=== PATIENT | female | born 1945 | race African-American/Black ===

== ENCOUNTER 2016-08-19 13:29 | Emergency (ER) | payer OTHER ==
[2016-08-19 13:36] VITALS: BP 140/68; PULSE 69; TEMP 98; BMI 30.5
--- NOTE | 2016-08-19 13:45 | PDOC ---
History of Present Illness - General Chief Complaint: Pain Stated Complaint: HIP PAIN Time Seen by Provider: 08/19/16 13:44 History Source: Patient Exam Limitations: No Limitations - History of Present Illness Initial Comments: CHIEF COMPLAINT: 71 y/o afebrile female with PMH HTN, HLD, DM, CAD (Previous CABG no longer on Plavix; only taking aspirin), sciatica c/o left sided low back pain. HISTORY OF PRESENT ILLNESS: The patient states she woke up at 4am and experienced low back pain that radiates down to her left leg. She states this has happened before and she thinks it s flare up of her sciatica. She took Aleve early in the morning. She states she does have a doctor that will give her a cortisone shot but she can't get in to see him today. She denies fall, trauma to back, saddle anesthesia, bowel/bladder incontinence, numbness/ tingling lower extremities. Vital signs on arrival are within normal limits. REVIEW OF SYSTEMS: GENERAL/CONSTITUTIONAL: No fever/chills. No weakness. No weight change. GENITOURINARY: No dysuria, frequency, or change in urination. MUSCULOSKELETAL: +left low back pain with left leg pain. SKIN: No rash or easy bruising. NEUROLOGIC: No headache, vertigo, loss of consciousness, or loss of sensation. PHYSICAL EXAM: VITAL_SIGNS: within normal limits GENERAL_APPEARANCE: alert, cooperative, no obvious discomfort. She is ambulatory without limp. MENTAL_STATUS: speech clear, oriented X 3, responds appropriately to questions. ABD: No abd pain or pelvic pain with palpation BACK: No midline lumbar spine TTP. No step offs. Pain reproduce with deep palpation of left gluteal muscles. NEURO: motor intact and sensory intact in injured extremity. No saddle anesthesia. Equal straight leg raise b/l. EXTREMITIES: Full ROM of b/l LEs. SKIN: warm, dry, good color. Past History - Past Medical History Allergies/Adverse Reactions: Allergies Allergy/AdvReac Type Severity Reaction Status Date / Time No Known Allergies Allergy Verified 08/19/16 13:32 Home Medications: Ambulatory Orders Aspirin [ASA] 81 mg PO DAILY 12/18/11 Clopidogrel Bisulfate [Plavix] 75 mg PO DAILY 12/18/11 Metoprolol Tartrate [Lopressor] 25 mg PO DAILY 12/18/11 Amlodipine/Valsartan [Amlodipine-Valsartan 5-320 mg] 1 each PO 08/19/16 Atorvastatin Ca [Lipitor] 20 mg PO HS 08/19/16 Clopidogrel Bisulfate [Clopidogrel] 75 mg PO 08/19/16 Ergocalciferol (Vitamin D2) [Vitamin D2] 2,000 unit PO 08/19/16 Metformin HCl 500 mg PO 08/19/16 Omeprazole 20 mg PO 08/19/16 Cardiac Disorders: Yes Diabetes: Yes HTN: Yes Other medical history: nerve damage (back) - Surgical History Appendectomy: Yes Cardiac Surgery: Yes (quad bypass) - Immunization History Td Vaccination: Yes TDAP Vaccination: Yes Immunization Up to Date: Yes - Psycho/Social/Smoking Cessation Hx Anxiety: No Suicidal Ideation: No Smoking Status: No Smoking History: Never smoked Years of Tobacco Use: 0 Have you smoked in the past 12 months: No Number of Cigarettes Smoked Daily: 0 Cigars Per Day: 0 Information on smoking cessation initiated: No Hx Alcohol Use: No Drug/Substance Use Hx: No Substance Use Type: None Hx Substance Use Treatment: No *Physical Exam - Vital Signs Last Vital Signs Temp Pulse Resp BP Pulse Ox 98 F 69 18 140/68 98 08/19/16 13:32 08/19/16 13:32 08/19/16 13:32 08/19/16 13:32 08/19/16 13:32 Medical Decision Making - Medical Decision Making A/P: 71 y/o afebrile female with sciatica flare up. Plan is as follows: 1. IM toradol The patient was encouraged to do stretches to help relieve the pain. Suggested she call her doctor for another cortisone shot. Instructed her to return to the ER with any worsening or concerning symptoms. The patient verbalizes understanding of all instructions, has no further questions and is awaiting discharge. *DC/Admit/Observation/Transfer Diagnosis at time of Disposition: Low back pain with sciatica Qualifiers: Chronicity: acute Back pain laterality: left Sciatica laterality: sciatica of left side Qualified Code(s): M54.42 - Lumbago with sciatica, left side - Discharge Dispostion Disposition: HOME Condition at time of disposition: Good - Referrals Referrals: Liliya Patel MD [Primary Care Provider] - - Patient Instructions Printed Discharge Instructions: DI for Back Pain With Sciatica Additional Instructions: Discharge Instructions: -Take Aleve for back pain -Use heating pad to affected area -Stretch your low back and legs multiple times per day -Follow up with your doctor for your next Cortisone injection -Return to the ER with any worsening or concerning symptoms
[2016-08-19] MEDS ORDERED: KETOROLAC TROMETHAMINE 60 MG/2 ML VIAL ONE (13:54)
[2016-08-19] MEDS ORDERED: KETOROLAC TROMETHAMINE 60 MG/2 ML VIAL IM ONE (13:55)
== END 2016-08-19 14:48 | disposition home or self-care (01) ==
LOC: JERFT 13:29
PROC: 3E0233Z Introduction of Anti-inflammatory into Muscle, Percutaneous Approach (ICD-10-PCS; principal; 2016-08-19)
DX: M54.42 Lumbago with sciatica, left side (principal); I10 Essential (primary) hypertension; E78.00 Pure hypercholesterolemia, unspecified; E11.9 Type 2 diabetes mellitus without complications; Z79.84 Long term (current) use of oral hypoglycemic drugs; Z95.1 Presence of aortocoronary bypass graft
CPT/HCPCS: 99281-25

== ENCOUNTER 2021-02-11 04:47 | Day surgery (SDC) | payer OTHER ==
[2021-02-10 16:54] VITALS: BMI 30.2
[~2021-02-11 04:47] MED LIST: ACETAMINOPHEN 325 MG TABLET (FP) PO PRN; CYCLOPENTOLATE HCL 1% OPHTH SOLN 2 ML BOTTLE OP SCH; KETOROLAC TROMETHAMINE 0.5% EYE DROP 1 DROP DROPS OP SCH; OFLOXACIN 0.3% OPHTHALMIC SOLUTION 5 ML BOTTLE OP SCH; PHENYLEPHRINE 2.5% OPHTH SOLN 15 ML BOTTLE OP SCH; TROPICAMIDE 1% OPHTH SOLN 15 ML BOTTLE OP SCH
[2021-02-11] MEDS ORDERED: TETRACAINE 0.5% OPHTH SOLN 2 ML BOTTLE ONE (07:28)
[2021-02-11] MEDS ORDERED: BUPIVACAINE HCL/PF 0.75% 10 ML VIAL ONE (07:28)
[2021-02-11] MEDS ORDERED: LIDOCAINE HCL/PF 2% SDV 5ML VIAL ONE (07:28)
[2021-02-11] MEDS ORDERED: POVIDONE-IODINE 5% OPHTHALMIC PREP 30 ML SOLUTION ONE (07:28)
[2021-02-11] MEDS ORDERED: LIDOCAINE HCL/PF 1% SDV 5ML VIAL ONE ×2 (07:28→11:20)
[2021-02-11] MEDS ORDERED: TRYPAN BLUE 0.5 ML DISP.SYRIN ONE (07:28)
[2021-02-11] MEDS ORDERED: TROPICAMIDE 1% OPHTH SOLN 15 ML BOTTLE ONE (09:09)
[2021-02-11] MEDS ORDERED: PHENYLEPHRINE 2.5% OPTHALMIC DROP BOTTLE ONE (09:09)
[2021-02-11] MEDS ORDERED: KETOROLAC TROMETHAMINE 0.5% EYE DROP 1 DROP DROPS ONE (09:09)
[2021-02-11] MEDS ORDERED: OFLOXACIN 0.3% OPHTHALMIC SOLUTION 5 ML BOTTLE ONE (09:09)
[2021-02-11] MEDS ORDERED: CYCLOPENTOLATE HCL 1% OPHTH SOLN 2 ML BOTTLE ONE (09:09)
[2021-02-11] MEDS ORDERED: LIDOCAINE HCL/PF 2% SDV 5ML VIAL INF ONE (11:27)
[2021-02-11] MEDS ORDERED: BUPIVACAINE HCL/PF 0.75% 10 ML VIAL NR ONE (11:27)
[2021-02-11] MEDS ORDERED: POVIDONE-IODINE 5% OPHTHALMIC PREP 30 ML SOLUTION OD ONE (11:29)
[2021-02-11] MEDS ORDERED: BSS (NA/CA/MG/K) BALANCED SALT SOLUTION OPHTH SOLN 15 ML BOTTLE OD ONE (11:33)
[2021-02-11] MEDS ORDERED: CHONDROITIN SU A/HYALUR SOD 1 KIT IO ONE (11:35)
[2021-02-11] MEDS ORDERED: LIDOCAINE HCL 1% PRESERVATIVE FREE - 30ML VIAL IO ONE (11:35)
[2021-02-11] MEDS ORDERED: TRYPAN BLUE 0.5 ML DISP.SYRIN IO ONE (11:36)
[2021-02-11] MEDS ORDERED: EPINEPHrine/PF 1 MG/1 ML (1:1,000) AMPULE SQ ONE (11:42)
[2021-02-11 12:50] VITALS: TEMP 97.6
[2021-02-11 13:19] VITALS: BP 140/72; PULSE 72
== END 2021-02-11 13:10 | disposition home or self-care (01) ==
LOC: JASU-SURG 04:47
PROVIDERS: ATTEND Ophthalmology
PROC: 08RJ3JZ Replacement of Right Lens with Synthetic Substitute, Percutaneous Approach (ICD-10-PCS; principal; 2021-02-11 11:00)
DX: H26.9 Unspecified cataract (principal); I10 Essential (primary) hypertension; E11.9 Type 2 diabetes mellitus without complications
CPT/HCPCS: 82962

== ENCOUNTER 2021-03-17 13:30 | Observation (INO) | payer OTHER ==
[2021-03-17 14:51] LABS: BASO % 0.3 % (0-2.0); EOS % 3.4 % (0-4.5); HEMATOCRIT 34.8 % (32.4-45.2); HEMOGLOBIN 11.8 GM/dL (10.7-15.3); LYMPH % 29.8 % (8-40); MCH 30.4 pg (25.7-33.7); MCHC 33.9 g/dl (32.0-36.0); MEAN CELL VOLUME 89.7 fl (80-96); MEAN PLT VOLUME 7.9 fl (7.5-11.1); MONO % 7.6 % (3.8-10.2); NEUT % 58.9 % (42.8-82.8); PLATELET COUNT 297 10^3/uL (134-434); RBC 3.88 M/mm3 (3.60-5.2); RDW 14.4 % (11.6-15.6)
[2021-03-17 16:24] LABS: ALBUMIN 4.2 g/dl (3.4-5.0); ALK PHOS 49 U/L (45-117); ANION GAP 8 MMOL/L (8-16); BILIRUBIN,TOTAL 0.3 mg/dL (0.2-1); BLOOD UREA NITROGEN 11.7 mg/dL (7-18); CALCIUM 9.9 mg/dL (8.5-10.1); CHLORIDE 105 mmol/L (98-107); CO2 25 mmol/L (21-32); CREATININE 0.8 mg/dL (0.55-1.3); GLUCOSE,RANDOM 105 mg/dL (74-106); SGOT/AST 20 U/L (15-37); SGPT/ALT 25 U/L (13-61); SODIUM 137 mmol/L (136-145); TOT PROT 8.2 g/dl (6.4-8.2)
[2021-03-17] MEDS: KETOROLAC TROMETHAMINE 0.5% EYE DROP 1 DROP DROPS OD SCH ×2 (18:23→21:48)
[2021-03-17] MEDS ORDERED: ACETAMINOPHEN 325 MG TABLET (FP) ONE (20:14)
[2021-03-17] MEDS: ROSUVASTATIN CA 10 MG TABLET (FP) PO SCH (21:49)
[2021-03-17] MEDS: MONTELUKAST NA 10 MG TABLET PO SCH (21:49)
[2021-03-17] MEDS: EZETIMIBE 10 MG TABLET (FP) PO SCH (21:49)
[2021-03-17] MEDS: BACLOFEN 10 MG TABLET (FP) PO SCH (21:49)
[2021-03-17] MEDS: PREGABALIN 75 MG CAPSULE PO SCH (21:50)
[2021-03-17] MEDS: HEPARIN NA (PORCINE) 5,000 UNITS/ML 1ML VIAL SQ SCH (21:50)
[2021-03-17] MEDS: ZOLPIDEM TARTRATE 5 MG TABLET PO PRN (22:14)
[2021-03-18] MEDS: ACETAMINOPHEN 500 MG TABLET (FP) PO PRN ×2 (01:14→18:17)
[2021-03-18 01:28] LABS: CHOLESTEROL 152 mg/dL (50-200); HDL CHOLESTEROL 41 mg/dL (40-60); LDL CHOLESTEROL (ONLY SJRH) 90 mg/dL (5-100); N-TERMINAL BNP 87.3 pg/ml (5-450); TRIGLYCERIDES 132 mg/dL (0-150)
[2021-03-18 07:35] LABS: BASO % 0.7 % (0-2.0); EOS % 2.7 % (0-4.5); HEMATOCRIT 30.4 % (32.4-45.2); HEMOGLOBIN 10.3 GM/dL (10.7-15.3); LYMPH % 35.8 % (8-40); MCH 30.1 pg (25.7-33.7); MCHC 33.7 g/dl (32.0-36.0); MEAN CELL VOLUME 89.2 fl (80-96); MEAN PLT VOLUME 7.9 fl (7.5-11.1); MONO % 8.6 % (3.8-10.2); NEUT % 52.2 % (42.8-82.8); PLATELET COUNT 267 10^3/uL (134-434); RBC 3.41 M/mm3 (3.60-5.2); RDW 14.5 % (11.6-15.6); WHITE BLOOD COUNT 6.8 K/mm3 (4.0-10.0)
[2021-03-18 09:55] LABS: ALBUMIN 3.5 g/dl (3.4-5.0); ALK PHOS 42 U/L (45-117); ANION GAP 3 MMOL/L (8-16); BILIRUBIN,TOTAL 0.3 mg/dL (0.2-1); BLOOD UREA NITROGEN 18.1 mg/dL (7-18); CALCIUM 8.7 mg/dL (8.5-10.1); CHLORIDE 111 mmol/L (98-107); CHOLESTEROL 125 mg/dL (50-200); CO2 28 mmol/L (21-32); GLUCOSE,RANDOM 97 mg/dL (74-106); HDL CHOLESTEROL 31 mg/dL (40-60); SGOT/AST 13 U/L (15-37); SGPT/ALT 22 U/L (13-61); SODIUM 142 mmol/L (136-145); TOT PROT 6.9 g/dl (6.4-8.2); TRIGLYCERIDES 110 mg/dL (0-150)
[2021-03-18] MEDS ORDERED: REGADENOSON 0.4 MG/5 ML PRE-FILLED SYRINGE IVPUSH ONE ×2 (10:20→10:30)
[2021-03-18] MEDS: KETOROLAC TROMETHAMINE 0.5% EYE DROP 1 DROP DROPS OD SCH ×4 (12:09→21:42)
[2021-03-18] MEDS: VALSARTAN 160 MG TABLET PO SCH (12:11)
[2021-03-18] MEDS: HEPARIN NA (PORCINE) 5,000 UNITS/ML 1ML VIAL SQ SCH ×2 (12:11→21:43)
[2021-03-18] MEDS: PANTOPRAZOLE 40 MG TABLET PO SCH (12:11)
[2021-03-18] MEDS: ASPIRIN 81 MG CHEWABLE TABLETS PO SCH (12:11)
[2021-03-18] MEDS: NEBIVOLOL 10 MG TABLET (FP) PO SCH (12:11)
[2021-03-18] MEDS: amLODIPine BESYLATE 5 MG TABLET (FP) PO SCH (12:12)
[2021-03-18] MEDS ORDERED: PT OWN MED DRAWER 7, Y5N ONE (12:13)
[2021-03-18] MEDS: PREGABALIN 75 MG CAPSULE PO SCH ×2 (12:14→21:42)
[2021-03-18] MEDS: FLUTICASONE PROP 0.05% 16 GM NASAL SPRAY NS SCH (12:17)
[2021-03-18 15:05] LABS: IRON SERUM 42 ug/dL (50-175); LDL CHOLESTEROL (ONLY SJRH) 70 mg/dL (5-100); TOTAL IRON BINDING CAPACITY 243 ug/dL (250-450)
[2021-03-18 17:14] LABS: HEMATOCRIT 32.2 % (32.4-45.2); HEMOGLOBIN 10.8 GM/dL (10.7-15.3); MCH 30.1 pg (25.7-33.7); MCHC 33.5 g/dl (32.0-36.0); MEAN CELL VOLUME 89.8 fl (80-96); MEAN PLT VOLUME 7.9 fl (7.5-11.1); PLATELET COUNT 291 10^3/uL (134-434); RBC 3.58 M/mm3 (3.60-5.2); RDW 14.4 % (11.6-15.6)
[2021-03-18] MEDS: BACLOFEN 10 MG TABLET (FP) PO SCH (21:42)
[2021-03-18] MEDS: MONTELUKAST NA 10 MG TABLET PO SCH (21:42)
[2021-03-18] MEDS: EZETIMIBE 10 MG TABLET (FP) PO SCH (21:42)
[2021-03-18] MEDS: ROSUVASTATIN CA 10 MG TABLET (FP) PO SCH (21:42)
[2021-03-18] MEDS: ZOLPIDEM TARTRATE 5 MG TABLET PO PRN (22:32)
[2021-03-19 09:09] VITALS: BP 106/58; PULSE 58; TEMP 98
[2021-03-19] MEDS: NEBIVOLOL 10 MG TABLET (FP) PO SCH (09:39)
[2021-03-19] MEDS: VALSARTAN 160 MG TABLET PO SCH (09:39)
[2021-03-19] MEDS: PREGABALIN 75 MG CAPSULE PO SCH (09:40)
[2021-03-19] MEDS: PANTOPRAZOLE 40 MG TABLET PO SCH (09:40)
[2021-03-19] MEDS: HEPARIN NA (PORCINE) 5,000 UNITS/ML 1ML VIAL SQ SCH (09:40)
[2021-03-19] MEDS: ASPIRIN 81 MG CHEWABLE TABLETS PO SCH (09:40)
[2021-03-19] MEDS: amLODIPine BESYLATE 5 MG TABLET (FP) PO SCH (09:40)
[2021-03-19] MEDS: FLUTICASONE PROP 0.05% 16 GM NASAL SPRAY NS SCH (09:43)
[2021-03-19] MEDS: KETOROLAC TROMETHAMINE 0.5% EYE DROP 1 DROP DROPS OD SCH (09:43)
== END 2021-03-19 11:39 | disposition home or self-care (01) ==
LOC: JER 13:30 → UNDOADMOB 16:47 → JERBED 16:47 → INTOOBSV 17:42 → OBSVTOIN 17:42 → JERBED 20:53 → J4W 20:53 → JERBED 03-18 13:15
PROVIDERS: ADMIT Family Medicine; ATTEND Family Medicine
PROC: 3E033GC Introduction of Other Therapeutic Substance into Peripheral Vein, Percutaneous Approach (ICD-10-PCS; principal; 2021-03-18)
DX: I11.0 Hypertensive heart disease with heart failure (principal); J45.909 Unspecified asthma, uncomplicated; K21.9 Gastro-esophageal reflux disease without esophagitis; D64.9 Anemia, unspecified; R01.1 Cardiac murmur, unspecified; Z68.30 Body mass index [BMI] 30.0-30.9, adult; Z95.1 Presence of aortocoronary bypass graft; M13.869 Other specified arthritis, unspecified knee; M13.819 Other specified arthritis, unspecified shoulder; M54.9 Dorsalgia, unspecified; E66.9 Obesity, unspecified; I25.2 Old myocardial infarction
CPT/HCPCS: 36415; 71045-TC-FY; 78452-TC; 80053; 80061; 82550; 82553; 82728; 82962; 83036; 83540; 83550; 83880; 84443; 84484; 85025; 85027; 93005; 93010; 93017; 93306-TC; 96374; 99285-25; A9502; C9803; G0378; J0475; J1644; J2785; U0003; U0005

== ENCOUNTER 2021-12-10 02:22 | Inpatient (IN) | payer OTHER ==
[2021-12-10] MEDS ORDERED: ACETAMINOPHEN 1000 MG/100 ML BAG IVPB ONE (03:21)
[2021-12-10] MEDS ORDERED: ACETAMINOPHEN INJECTION 100 ML IVPB ONE (03:21)
[2021-12-10] MEDS ORDERED: LIDOCAINE 5% TOPICAL PATCH TP ONE ×2 (03:22→23:54)
[2021-12-10] MEDS ORDERED: LIDOCAINE 5% TOPICAL PATCH ONE (03:48)
[2021-12-10] MEDS ORDERED: ALBUTEROL SO4 0.083% IH SOL 2.5 MG/3 ML VIAL.NEB. NEB ONE ×2 (04:12→04:22)
[2021-12-10 04:19] LABS: BASO % 0.7 % (0-2.0); EOS % 3.8 % (0-4.5); HEMATOCRIT 36.1 % (32.4-45.2); HEMOGLOBIN 12.6 GM/dL (10.7-15.3); LYMPH % 27.1 % (8-40); MCH 30.4 pg (25.7-33.7); MCHC 34.9 g/dl (32.0-36.0); MEAN CELL VOLUME 86.9 fl (80-96); MEAN PLT VOLUME 8.6 fl (7.5-11.1); MONO % 6.6 % (3.8-10.2); NEUT % 61.8 % (42.8-82.8); PLATELET COUNT 291 10^3/uL (134-434); RBC 4.15 M/mm3 (3.60-5.2); WHITE BLOOD COUNT 9.3 K/mm3 (4.0-10.0)
[2021-12-10 04:36] LABS: CALCIUM 9.2 mg/dL (8.5-10.1)
[2021-12-10 04:37] LABS: ALBUMIN 4.3 g/dl (3.4-5.0); BLOOD UREA NITROGEN 23.2 mg/dL (7-18)
[2021-12-10] MEDS ORDERED: methylPREDNISolone NA SUCC 1000 MG/8 ML VIAL IVPB ONE (04:38)
[2021-12-10 04:40] LABS: CREATININE 1.1 mg/dL (0.55-1.3)
[2021-12-10 04:41] LABS: BILIRUBIN,TOTAL 0.4 mg/dL (0.2-1); TOT PROT 8.6 g/dl (6.4-8.2)
[2021-12-10] MEDS ORDERED: methylPREDNISolone NA SUCC 125 MG/2 ML VIAL ONE (04:42)
[2021-12-10 04:45] LABS: N-TERMINAL BNP 257.9 pg/ml (5-450)
[2021-12-10] MEDS ORDERED: ALBUTEROL SO4 HFA INHALER IH PRN (06:39)
[2021-12-10 08:51] LABS: BLOOD UREA NITROGEN 19.8 mg/dL (7-18); CALCIUM 9.4 mg/dL (8.5-10.1)
[2021-12-10 08:54] LABS: CREATININE 1.1 mg/dL (0.55-1.3)
[2021-12-10] MEDS ORDERED: PANTOPRAZOLE 40 MG TABLET PO ONE (08:58)
[2021-12-10] MEDS ORDERED: amLODIPine BESYLATE 5 MG TABLET (FP) ONE (08:59)
[2021-12-10] MEDS ORDERED: ASPIRIN 81 MG CHEWABLE TABLETS ONE (08:59)
[2021-12-10] MEDS ORDERED: LOSARTAN POTASSIUM 50 MG TABLET ONE (08:59)
[2021-12-10] MEDS ORDERED: MONTELUKAST NA 10 MG TABLET ONE (08:59)
[2021-12-10] MEDS: LOSARTAN POTASSIUM 50 MG TABLET PO SCH (09:13)
[2021-12-10] MEDS: HYDROCHLOROTHIAZIDE 12.5 MG CAPSULE (FP) PO SCH (09:13)
[2021-12-10] MEDS: NEBIVOLOL 10 MG TABLET (FP) PO SCH (09:13)
[2021-12-10] MEDS: MONTELUKAST NA 10 MG TABLET PO SCH (09:13)
[2021-12-10] MEDS: amLODIPine BESYLATE 5 MG TABLET (FP) PO SCH (09:13)
[2021-12-10] MEDS: PANTOPRAZOLE 40 MG TABLET PO SCH (09:13)
[2021-12-10] MEDS: ASPIRIN 81 MG CHEWABLE TABLETS PO SCH (09:13)
[2021-12-10] MEDS ORDERED: ACETAMINOPHEN 325 MG TABLET (FP) ONE (09:21)
[2021-12-10] MEDS: ACETAMINOPHEN 325 MG TABLET (FP) PO PRN ×2 (09:31→22:39)
[2021-12-10] MEDS ORDERED: PATIENT'S OWN MEDICATION (NON-FORMULARY) (Losartan/Hydrochlorothiazide [Losartan-Hctz 100- PO SCH (10:00)
[2021-12-10] MEDS: methylPREDNISolone NA SUCC 40 MG/1 ML VIAL IVPUSH SCH ×2 (11:30→18:09)
[2021-12-10] MEDS ORDERED: methylPREDNISolone NA SUCC 40 MG/1 ML VIAL ONE ×2 (11:37→17:50)
[2021-12-10] MEDS: BUDESONIDE/FORMETEROL FUMARATE 160/4.5 mcg INHALER IH SCH ×2 (12:30→22:28)
[2021-12-10] MEDS: INSULIN SLIDING SCALE (NOVOLOG) 1 VIAL SQ SCH ×3 (12:37→22:23)
[2021-12-10] MEDS ORDERED: MAG HYDROX/AL HYDROX/SIMETH 30 ML UNIT-DOSE CUP PO ONE (16:04)
[2021-12-10] MEDS ORDERED: MAG HYDROX/AL HYDROX/SIMETH 30 ML UNIT-DOSE CUP ONE (16:05)
[2021-12-10] MEDS: LIDOCAINE PATCH REMOVAL MC SCH (22:18)
[2021-12-10] MEDS: EZETIMIBE 10 MG TABLET (FP) PO SCH (22:23)
[2021-12-10] MEDS: NORTRIPTYLINE HCL 10 MG CAPSULE PO SCH (22:39)
[2021-12-11] MEDS: methylPREDNISolone NA SUCC 40 MG/1 ML VIAL IVPUSH SCH ×2 (01:26→11:00)
[2021-12-11 01:35] VITALS: BMI 31.5
[2021-12-11] MEDS: INSULIN SLIDING SCALE (NOVOLOG) 1 VIAL SQ SCH ×4 (06:30→21:29)
[2021-12-11] MEDS: PANTOPRAZOLE 40 MG TABLET PO SCH (11:00)
[2021-12-11] MEDS: amLODIPine BESYLATE 5 MG TABLET (FP) PO SCH (11:00)
[2021-12-11] MEDS: NEBIVOLOL 10 MG TABLET (FP) PO SCH (11:00)
[2021-12-11] MEDS: ASPIRIN 81 MG CHEWABLE TABLETS PO SCH (11:00)
[2021-12-11] MEDS: HYDROCHLOROTHIAZIDE 12.5 MG CAPSULE (FP) PO SCH (11:00)
[2021-12-11] MEDS: LOSARTAN POTASSIUM 50 MG TABLET PO SCH (11:00)
[2021-12-11] MEDS: MONTELUKAST NA 10 MG TABLET PO SCH (11:00)
[2021-12-11] MEDS: BUDESONIDE/FORMETEROL FUMARATE 160/4.5 mcg INHALER IH SCH ×2 (11:01→21:32)
[2021-12-11] MEDS: LIDOCAINE PATCH REMOVAL MC SCH ×2 (11:06→21:27)
[2021-12-11] MEDS: ACETAMINOPHEN 325 MG TABLET (FP) PO PRN ×2 (11:22→21:31)
[2021-12-11] MEDS: predniSONE 20 MG TABLET (UD) PO SCH (14:19)
[2021-12-11] MEDS: NORTRIPTYLINE HCL 10 MG CAPSULE PO SCH (21:27)
[2021-12-11] MEDS: EZETIMIBE 10 MG TABLET (FP) PO SCH (21:30)
[2021-12-12] MEDS: INSULIN SLIDING SCALE (NOVOLOG) 1 VIAL SQ SCH ×4 (06:52→22:04)
[2021-12-12] MEDS: MONTELUKAST NA 10 MG TABLET PO SCH (10:30)
[2021-12-12] MEDS: NEBIVOLOL 10 MG TABLET (FP) PO SCH (10:30)
[2021-12-12] MEDS: LOSARTAN POTASSIUM 50 MG TABLET PO SCH (10:31)
[2021-12-12] MEDS: ASPIRIN 81 MG CHEWABLE TABLETS PO SCH (10:31)
[2021-12-12] MEDS: HYDROCHLOROTHIAZIDE 12.5 MG CAPSULE (FP) PO SCH (10:32)
[2021-12-12] MEDS: predniSONE 20 MG TABLET (UD) PO SCH (10:32)
[2021-12-12] MEDS: PANTOPRAZOLE 40 MG TABLET PO SCH (10:32)
[2021-12-12] MEDS: LIDOCAINE PATCH REMOVAL MC SCH ×2 (10:33→22:09)
[2021-12-12] MEDS: BUDESONIDE/FORMETEROL FUMARATE 160/4.5 mcg INHALER IH SCH ×2 (10:33→22:12)
[2021-12-12] MEDS: ACETAMINOPHEN 325 MG TABLET (FP) PO PRN ×2 (11:13→22:09)
[2021-12-12] MEDS: amLODIPine BESYLATE 5 MG TABLET (FP) PO SCH (12:13)
[2021-12-12] MEDS: NORTRIPTYLINE HCL 10 MG CAPSULE PO SCH (22:11)
[2021-12-12] MEDS: EZETIMIBE 10 MG TABLET (FP) PO SCH (22:13)
[2021-12-13] MEDS: INSULIN SLIDING SCALE (NOVOLOG) 1 VIAL SQ SCH ×4 (06:43→21:38)
[2021-12-13] MEDS: PANTOPRAZOLE 40 MG TABLET PO SCH (10:38)
[2021-12-13] MEDS: HYDROCHLOROTHIAZIDE 12.5 MG CAPSULE (FP) PO SCH (10:38)
[2021-12-13] MEDS: NEBIVOLOL 10 MG TABLET (FP) PO SCH (10:38)
[2021-12-13] MEDS: LOSARTAN POTASSIUM 50 MG TABLET PO SCH (10:38)
[2021-12-13] MEDS: amLODIPine BESYLATE 5 MG TABLET (FP) PO SCH (10:38)
[2021-12-13] MEDS: predniSONE 20 MG TABLET (UD) PO SCH (10:38)
[2021-12-13] MEDS: ASPIRIN 81 MG CHEWABLE TABLETS PO SCH (10:38)
[2021-12-13] MEDS: BUDESONIDE/FORMETEROL FUMARATE 160/4.5 mcg INHALER IH SCH ×2 (10:39→21:25)
[2021-12-13] MEDS: ACETAMINOPHEN 325 MG TABLET (FP) PO PRN ×2 (10:40→21:26)
[2021-12-13] MEDS: MONTELUKAST NA 10 MG TABLET PO SCH (12:22)
[2021-12-13] MEDS: NORTRIPTYLINE HCL 10 MG CAPSULE PO SCH (21:23)
[2021-12-13] MEDS: EZETIMIBE 10 MG TABLET (FP) PO SCH (21:23)
[2021-12-13] MEDS: POLYETHYLENE GLYCOL (HEALTHYLAX) 3350 17 GM PACKET PO PRN (22:02)
[2021-12-14] MEDS: INSULIN SLIDING SCALE (NOVOLOG) 1 VIAL SQ SCH ×4 (06:31→21:47)
[2021-12-14 08:36] LABS: BASO % 0.2 % (0-2.0); EOS % 1.8 % (0-4.5); HEMATOCRIT 40.6 % (32.4-45.2); HEMOGLOBIN 13.3 GM/dL (10.7-15.3); LYMPH % 37.3 % (8-40); MCH 28.8 pg (25.7-33.7); MCHC 32.8 g/dl (32.0-36.0); MEAN CELL VOLUME 87.7 fl (80-96); MEAN PLT VOLUME 8.7 fl (7.5-11.1); MONO % 6.9 % (3.8-10.2); NEUT % 53.8 % (42.8-82.8); PLATELET COUNT 350 10^3/uL (134-434); RBC 4.63 M/mm3 (3.60-5.2); RDW 13.7 % (11.6-15.6); WHITE BLOOD COUNT 15.2 K/mm3 (4.0-10.0)
[2021-12-14 08:55] LABS: CALCIUM 9.6 mg/dL (8.5-10.1)
[2021-12-14 08:56] LABS: BLOOD UREA NITROGEN 24.5 mg/dL (7-18)
[2021-12-14 09:01] LABS: BILIRUBIN,TOTAL 0.6 mg/dL (0.2-1); TOT PROT 8.2 g/dl (6.4-8.2)
[2021-12-14] MEDS: amLODIPine BESYLATE 5 MG TABLET (FP) PO SCH (09:28)
[2021-12-14] MEDS: predniSONE 20 MG TABLET (UD) PO SCH (09:28)
[2021-12-14] MEDS: PANTOPRAZOLE 40 MG TABLET PO SCH (09:28)
[2021-12-14] MEDS: NEBIVOLOL 10 MG TABLET (FP) PO SCH (09:28)
[2021-12-14] MEDS: LOSARTAN POTASSIUM 50 MG TABLET PO SCH (09:28)
[2021-12-14] MEDS: HYDROCHLOROTHIAZIDE 12.5 MG CAPSULE (FP) PO SCH (09:28)
[2021-12-14] MEDS: MONTELUKAST NA 10 MG TABLET PO SCH (09:28)
[2021-12-14] MEDS: ASPIRIN 81 MG CHEWABLE TABLETS PO SCH (09:28)
[2021-12-14] MEDS: ACETAMINOPHEN 325 MG TABLET (FP) PO PRN ×2 (09:30→21:52)
[2021-12-14] MEDS: POLYETHYLENE GLYCOL (HEALTHYLAX) 3350 17 GM PACKET PO PRN (09:35)
[2021-12-14] MEDS: BUDESONIDE/FORMETEROL FUMARATE 160/4.5 mcg INHALER IH SCH ×2 (09:35→21:48)
[2021-12-14] MEDS: GABAPENTIN 100 MG CAPSULE PO SCH ×2 (15:11→21:46)
[2021-12-14] MEDS: guaiFENesin/CODEINE 5 ML UNIT-DOSE CUPS PO PRN ×2 (15:28→22:52)
[2021-12-14] MEDS: EZETIMIBE 10 MG TABLET (FP) PO SCH (21:46)
[2021-12-14] MEDS: NORTRIPTYLINE HCL 10 MG CAPSULE PO SCH (21:47)
[2021-12-15] MEDS: GABAPENTIN 100 MG CAPSULE PO SCH ×3 (06:27→22:15)
[2021-12-15] MEDS: POLYETHYLENE GLYCOL (HEALTHYLAX) 3350 17 GM PACKET PO PRN (06:27)
[2021-12-15] MEDS: metFORMIN HCL 500 MG TABLET (FP) PO SCH ×2 (06:27→16:50)
[2021-12-15] MEDS: INSULIN SLIDING SCALE (NOVOLOG) 1 VIAL SQ SCH ×4 (06:28→22:18)
[2021-12-15 07:37] LABS: BASO % 0.2 % (0-2.0); EOS % 1.8 % (0-4.5); HEMATOCRIT 37.3 % (32.4-45.2); HEMOGLOBIN 12.4 GM/dL (10.7-15.3); LYMPH % 34.2 % (8-40); MCH 29.1 pg (25.7-33.7); MCHC 33.3 g/dl (32.0-36.0); MEAN CELL VOLUME 87.5 fl (80-96); MEAN PLT VOLUME 8.6 fl (7.5-11.1); MONO % 5.8 % (3.8-10.2); PLATELET COUNT 341 10^3/uL (134-434); RBC 4.27 M/mm3 (3.60-5.2); RDW 13.9 % (11.6-15.6); WHITE BLOOD COUNT 14.9 K/mm3 (4.0-10.0)
[2021-12-15 08:06] LABS: CALCIUM 9.3 mg/dL (8.5-10.1)
[2021-12-15 08:07] LABS: ALBUMIN 3.9 g/dl (3.4-5.0); BLOOD UREA NITROGEN 26.5 mg/dL (7-18)
[2021-12-15 08:10] LABS: CREATININE 0.9 mg/dL (0.55-1.3)
[2021-12-15 08:12] LABS: BILIRUBIN,TOTAL 0.8 mg/dL (0.2-1); TOT PROT 7.6 g/dl (6.4-8.2)
[2021-12-15] MEDS: MONTELUKAST NA 10 MG TABLET PO SCH (09:34)
[2021-12-15] MEDS: HYDROCHLOROTHIAZIDE 12.5 MG CAPSULE (FP) PO SCH (09:34)
[2021-12-15] MEDS: BUDESONIDE/FORMETEROL FUMARATE 160/4.5 mcg INHALER IH SCH ×2 (09:34→22:15)
[2021-12-15] MEDS: predniSONE 20 MG TABLET (UD) PO SCH (09:34)
[2021-12-15] MEDS: PANTOPRAZOLE 40 MG TABLET PO SCH (09:34)
[2021-12-15] MEDS: amLODIPine BESYLATE 5 MG TABLET (FP) PO SCH (09:34)
[2021-12-15] MEDS: ASPIRIN 81 MG CHEWABLE TABLETS PO SCH (09:35)
[2021-12-15] MEDS: LOSARTAN POTASSIUM 50 MG TABLET PO SCH (09:35)
[2021-12-15] MEDS: NEBIVOLOL 10 MG TABLET (FP) PO SCH (09:35)
[2021-12-15] MEDS: ACETAMINOPHEN 325 MG TABLET (FP) PO PRN ×2 (09:36→22:14)
[2021-12-15] MEDS: POLYETHYLENE GLYCOL (HEALTHYLAX) 3350 17 GM PACKET PO SCH ×2 (13:59→22:14)
[2021-12-15] MEDS: EZETIMIBE 10 MG TABLET (FP) PO SCH (22:15)
[2021-12-15] MEDS: guaiFENesin/CODEINE 5 ML UNIT-DOSE CUPS PO PRN (22:15)
[2021-12-15] MEDS: NORTRIPTYLINE HCL 10 MG CAPSULE PO SCH (22:15)
[2021-12-16] MEDS: metFORMIN HCL 500 MG TABLET (FP) PO SCH ×2 (06:29→17:14)
[2021-12-16] MEDS: POLYETHYLENE GLYCOL (HEALTHYLAX) 3350 17 GM PACKET PO SCH ×3 (06:29→21:45)
[2021-12-16] MEDS: GABAPENTIN 100 MG CAPSULE PO SCH ×3 (06:29→21:44)
[2021-12-16] MEDS: INSULIN SLIDING SCALE (NOVOLOG) 1 VIAL SQ SCH ×4 (06:29→21:45)
[2021-12-16] MEDS: BUDESONIDE/FORMETEROL FUMARATE 160/4.5 mcg INHALER IH SCH ×2 (09:14→21:46)
[2021-12-16] MEDS: PANTOPRAZOLE 40 MG TABLET PO SCH (09:14)
[2021-12-16] MEDS: HYDROCHLOROTHIAZIDE 12.5 MG CAPSULE (FP) PO SCH (09:14)
[2021-12-16] MEDS: predniSONE 20 MG TABLET (UD) PO SCH (09:14)
[2021-12-16] MEDS: amLODIPine BESYLATE 5 MG TABLET (FP) PO SCH (09:14)
[2021-12-16] MEDS: LOSARTAN POTASSIUM 50 MG TABLET PO SCH (09:14)
[2021-12-16] MEDS: NEBIVOLOL 10 MG TABLET (FP) PO SCH (09:14)
[2021-12-16] MEDS: MONTELUKAST NA 10 MG TABLET PO SCH (09:14)
[2021-12-16] MEDS: ASPIRIN 81 MG CHEWABLE TABLETS PO SCH (09:14)
[2021-12-16] MEDS: guaiFENesin/CODEINE 5 ML UNIT-DOSE CUPS PO PRN ×2 (11:33→21:51)
[2021-12-16] MEDS: EZETIMIBE 10 MG TABLET (FP) PO SCH (21:44)
[2021-12-16] MEDS: NORTRIPTYLINE HCL 10 MG CAPSULE PO SCH (21:45)
[2021-12-16] MEDS: ACETAMINOPHEN 325 MG TABLET (FP) PO PRN (21:51)
[2021-12-17] MEDS: GABAPENTIN 100 MG CAPSULE PO SCH ×3 (06:10→21:13)
[2021-12-17] MEDS: metFORMIN HCL 500 MG TABLET (FP) PO SCH ×2 (06:10→16:40)
[2021-12-17] MEDS: INSULIN SLIDING SCALE (NOVOLOG) 1 VIAL SQ SCH ×4 (06:11→21:11)
[2021-12-17] MEDS: POLYETHYLENE GLYCOL (HEALTHYLAX) 3350 17 GM PACKET PO SCH ×4 (06:12→21:13)
[2021-12-17] MEDS: LOSARTAN POTASSIUM 50 MG TABLET PO SCH (09:23)
[2021-12-17] MEDS: HYDROCHLOROTHIAZIDE 12.5 MG CAPSULE (FP) PO SCH (09:23)
[2021-12-17] MEDS: predniSONE 20 MG TABLET (UD) PO SCH (09:23)
[2021-12-17] MEDS: PANTOPRAZOLE 40 MG TABLET PO SCH (09:23)
[2021-12-17] MEDS: NEBIVOLOL 10 MG TABLET (FP) PO SCH (09:23)
[2021-12-17] MEDS: amLODIPine BESYLATE 5 MG TABLET (FP) PO SCH (09:23)
[2021-12-17] MEDS: MONTELUKAST NA 10 MG TABLET PO SCH (09:23)
[2021-12-17] MEDS: ASPIRIN 81 MG CHEWABLE TABLETS PO SCH (09:23)
[2021-12-17] MEDS: BUDESONIDE/FORMETEROL FUMARATE 160/4.5 mcg INHALER IH SCH ×2 (09:24→21:14)
[2021-12-17] MEDS: ACETAMINOPHEN 325 MG TABLET (FP) PO PRN ×2 (10:21→22:18)
[2021-12-17] MEDS: EZETIMIBE 10 MG TABLET (FP) PO SCH (21:13)
[2021-12-17] MEDS: NORTRIPTYLINE HCL 10 MG CAPSULE PO SCH (21:13)
[2021-12-18] MEDS: INSULIN SLIDING SCALE (NOVOLOG) 1 VIAL SQ SCH ×4 (07:19→22:03)
[2021-12-18] MEDS: metFORMIN HCL 500 MG TABLET (FP) PO SCH ×2 (07:19→16:59)
[2021-12-18] MEDS: GABAPENTIN 100 MG CAPSULE PO SCH ×3 (07:19→21:52)
[2021-12-18] MEDS: POLYETHYLENE GLYCOL (HEALTHYLAX) 3350 17 GM PACKET PO SCH ×3 (07:19→21:52)
[2021-12-18] MEDS: ASPIRIN 81 MG CHEWABLE TABLETS PO SCH (09:05)
[2021-12-18] MEDS: amLODIPine BESYLATE 5 MG TABLET (FP) PO SCH (09:05)
[2021-12-18] MEDS: PANTOPRAZOLE 40 MG TABLET PO SCH (09:05)
[2021-12-18] MEDS: HYDROCHLOROTHIAZIDE 12.5 MG CAPSULE (FP) PO SCH (09:05)
[2021-12-18] MEDS: LOSARTAN POTASSIUM 50 MG TABLET PO SCH (09:05)
[2021-12-18] MEDS: predniSONE 20 MG TABLET (UD) PO SCH (09:05)
[2021-12-18] MEDS: MONTELUKAST NA 10 MG TABLET PO SCH (09:05)
[2021-12-18] MEDS: BUDESONIDE/FORMETEROL FUMARATE 160/4.5 mcg INHALER IH SCH ×2 (09:06→22:13)
[2021-12-18] MEDS: NEBIVOLOL 10 MG TABLET (FP) PO SCH (09:07)
[2021-12-18] MEDS: guaiFENesin 200 MG/10 ML 10 ML UNIT-DOSE CUPS PO PRN (18:31)
[2021-12-18] MEDS: ACETAMINOPHEN 325 MG TABLET (FP) PO PRN (21:50)
[2021-12-18] MEDS: EZETIMIBE 10 MG TABLET (FP) PO SCH (21:50)
[2021-12-18] MEDS: NORTRIPTYLINE HCL 10 MG CAPSULE PO SCH (21:52)
[2021-12-19] MEDS: GABAPENTIN 100 MG CAPSULE PO SCH ×3 (05:53→21:59)
[2021-12-19] MEDS: POLYETHYLENE GLYCOL (HEALTHYLAX) 3350 17 GM PACKET PO SCH ×3 (05:53→21:59)
[2021-12-19] MEDS: metFORMIN HCL 500 MG TABLET (FP) PO SCH ×2 (06:00→17:09)
[2021-12-19] MEDS: INSULIN SLIDING SCALE (NOVOLOG) 1 VIAL SQ SCH ×4 (06:00→22:04)
[2021-12-19] MEDS: guaiFENesin 200 MG/10 ML 10 ML UNIT-DOSE CUPS PO PRN (06:01)
[2021-12-19] MEDS: NEBIVOLOL 10 MG TABLET (FP) PO SCH (09:26)
[2021-12-19] MEDS: HYDROCHLOROTHIAZIDE 12.5 MG CAPSULE (FP) PO SCH (09:26)
[2021-12-19] MEDS: MONTELUKAST NA 10 MG TABLET PO SCH (09:26)
[2021-12-19] MEDS: BUDESONIDE/FORMETEROL FUMARATE 160/4.5 mcg INHALER IH SCH ×2 (09:26→22:00)
[2021-12-19] MEDS: LOSARTAN POTASSIUM 50 MG TABLET PO SCH (09:26)
[2021-12-19] MEDS: amLODIPine BESYLATE 5 MG TABLET (FP) PO SCH (09:26)
[2021-12-19] MEDS: ASPIRIN 81 MG CHEWABLE TABLETS PO SCH (09:26)
[2021-12-19] MEDS: PANTOPRAZOLE 40 MG TABLET PO SCH (09:26)
[2021-12-19] MEDS: predniSONE 20 MG TABLET (UD) PO SCH (09:26)
[2021-12-19] MEDS: ACETAMINOPHEN 325 MG TABLET (FP) PO PRN (09:30)
[2021-12-19] MEDS: EZETIMIBE 10 MG TABLET (FP) PO SCH (21:59)
[2021-12-19] MEDS: NORTRIPTYLINE HCL 10 MG CAPSULE PO SCH (22:00)
[2021-12-20] MEDS: guaiFENesin 200 MG/10 ML 10 ML UNIT-DOSE CUPS PO PRN ×2 (00:42→22:20)
[2021-12-20] MEDS: ACETAMINOPHEN 325 MG TABLET (FP) PO PRN ×3 (00:43→21:15)
[2021-12-20] MEDS: INSULIN SLIDING SCALE (NOVOLOG) 1 VIAL SQ SCH ×4 (06:27→21:17)
[2021-12-20] MEDS: metFORMIN HCL 500 MG TABLET (FP) PO SCH ×2 (06:27→16:45)
[2021-12-20] MEDS: GABAPENTIN 100 MG CAPSULE PO SCH ×3 (06:27→21:15)
[2021-12-20] MEDS: POLYETHYLENE GLYCOL (HEALTHYLAX) 3350 17 GM PACKET PO SCH ×3 (06:31→21:20)
[2021-12-20] MEDS: PANTOPRAZOLE 40 MG TABLET PO SCH (09:21)
[2021-12-20] MEDS: HYDROCHLOROTHIAZIDE 12.5 MG CAPSULE (FP) PO SCH (09:21)
[2021-12-20] MEDS: amLODIPine BESYLATE 5 MG TABLET (FP) PO SCH (09:21)
[2021-12-20] MEDS: NEBIVOLOL 10 MG TABLET (FP) PO SCH (09:21)
[2021-12-20] MEDS: MONTELUKAST NA 10 MG TABLET PO SCH (09:21)
[2021-12-20] MEDS: LOSARTAN POTASSIUM 50 MG TABLET PO SCH (09:21)
[2021-12-20] MEDS: ASPIRIN 81 MG CHEWABLE TABLETS PO SCH (09:21)
[2021-12-20] MEDS: predniSONE 10 MG TABLET (UD) PO SCH (09:22)
[2021-12-20] MEDS: BUDESONIDE/FORMETEROL FUMARATE 160/4.5 mcg INHALER IH SCH ×2 (10:45→21:20)
[2021-12-20] MEDS: EZETIMIBE 10 MG TABLET (FP) PO SCH (21:15)
[2021-12-20] MEDS: NORTRIPTYLINE HCL 10 MG CAPSULE PO SCH (21:15)
[2021-12-21] MEDS: metFORMIN HCL 500 MG TABLET (FP) PO SCH ×2 (06:20→17:09)
[2021-12-21] MEDS: GABAPENTIN 100 MG CAPSULE PO SCH ×3 (06:20→21:20)
[2021-12-21] MEDS: POLYETHYLENE GLYCOL (HEALTHYLAX) 3350 17 GM PACKET PO SCH ×3 (06:20→22:52)
[2021-12-21] MEDS: INSULIN SLIDING SCALE (NOVOLOG) 1 VIAL SQ SCH ×4 (06:21→21:26)
[2021-12-21 08:14] LABS: HEMATOCRIT 37.3 % (32.4-45.2); HEMOGLOBIN 12.6 GM/dL (10.7-15.3); MCH 29.8 pg (25.7-33.7); MCHC 33.7 g/dl (32.0-36.0); MEAN CELL VOLUME 88.3 fl (80-96); MEAN PLT VOLUME 7.9 fl (7.5-11.1); PLATELET COUNT 326 10^3/uL (134-434); RBC 4.22 M/mm3 (3.60-5.2); WHITE BLOOD COUNT 14.4 K/mm3 (4.0-10.0)
[2021-12-21 08:38] LABS: CALCIUM 9.5 mg/dL (8.5-10.1)
[2021-12-21 08:39] LABS: ALBUMIN 3.8 g/dl (3.4-5.0); BLOOD UREA NITROGEN 27.5 mg/dL (7-18); MAGNESIUM 1.7 mg/dL (1.8-2.4)
[2021-12-21 08:41] LABS: CREATININE 0.9 mg/dL (0.55-1.3)
[2021-12-21 08:43] LABS: BILIRUBIN,TOTAL 0.7 mg/dL (0.2-1); TOT PROT 7.4 g/dl (6.4-8.2)
[2021-12-21] MEDS: predniSONE 10 MG TABLET (UD) PO SCH (09:42)
[2021-12-21] MEDS: ASPIRIN 81 MG CHEWABLE TABLETS PO SCH (09:42)
[2021-12-21] MEDS: amLODIPine BESYLATE 5 MG TABLET (FP) PO SCH (09:42)
[2021-12-21] MEDS: HYDROCHLOROTHIAZIDE 12.5 MG CAPSULE (FP) PO SCH (09:42)
[2021-12-21] MEDS: PANTOPRAZOLE 40 MG TABLET PO SCH (09:42)
[2021-12-21] MEDS: LOSARTAN POTASSIUM 50 MG TABLET PO SCH (09:42)
[2021-12-21] MEDS: NEBIVOLOL 10 MG TABLET (FP) PO SCH (09:43)
[2021-12-21] MEDS: BUDESONIDE/FORMETEROL FUMARATE 160/4.5 mcg INHALER IH SCH ×2 (09:43→21:20)
[2021-12-21] MEDS: MONTELUKAST NA 10 MG TABLET PO SCH (09:43)
[2021-12-21] MEDS ORDERED: MAGNESIUM SULF 50% (8.12 MEQ/2 ML-1 GM VIAL) IVPB ONE (12:15)
[2021-12-21] MEDS: NORTRIPTYLINE HCL 10 MG CAPSULE PO SCH (21:20)
[2021-12-21] MEDS: EZETIMIBE 10 MG TABLET (FP) PO SCH (21:21)
[2021-12-21] MEDS: ACETAMINOPHEN 325 MG TABLET (FP) PO PRN (21:21)
[2021-12-21] MEDS: guaiFENesin 200 MG/10 ML 10 ML UNIT-DOSE CUPS PO PRN (21:43)
[2021-12-21] MEDS: MAGNESIUM OXIDE 400 MG TABLET (FP) PO SCH (21:43)
[2021-12-22] MEDS: GABAPENTIN 100 MG CAPSULE PO SCH ×3 (06:33→21:12)
[2021-12-22] MEDS: metFORMIN HCL 500 MG TABLET (FP) PO SCH ×2 (06:34→16:17)
[2021-12-22] MEDS: INSULIN SLIDING SCALE (NOVOLOG) 1 VIAL SQ SCH ×4 (06:34→21:16)
[2021-12-22] MEDS: POLYETHYLENE GLYCOL (HEALTHYLAX) 3350 17 GM PACKET PO SCH ×3 (06:34→21:18)
[2021-12-22] MEDS: MONTELUKAST NA 10 MG TABLET PO SCH (09:30)
[2021-12-22] MEDS: MAGNESIUM OXIDE 400 MG TABLET (FP) PO SCH ×2 (09:30→21:12)
[2021-12-22] MEDS: ASPIRIN 81 MG CHEWABLE TABLETS PO SCH (09:30)
[2021-12-22] MEDS: HYDROCHLOROTHIAZIDE 12.5 MG CAPSULE (FP) PO SCH (09:30)
[2021-12-22] MEDS: LOSARTAN POTASSIUM 50 MG TABLET PO SCH (09:30)
[2021-12-22] MEDS: PANTOPRAZOLE 40 MG TABLET PO SCH (09:30)
[2021-12-22] MEDS: amLODIPine BESYLATE 5 MG TABLET (FP) PO SCH (09:30)
[2021-12-22] MEDS: NEBIVOLOL 10 MG TABLET (FP) PO SCH (09:30)
[2021-12-22] MEDS: predniSONE 10 MG TABLET (UD) PO SCH (09:31)
[2021-12-22] MEDS: BUDESONIDE/FORMETEROL FUMARATE 160/4.5 mcg INHALER IH SCH ×2 (09:31→21:18)
[2021-12-22] MEDS: EZETIMIBE 10 MG TABLET (FP) PO SCH (21:13)
[2021-12-22] MEDS: NORTRIPTYLINE HCL 10 MG CAPSULE PO SCH (21:13)
[2021-12-23] MEDS: POLYETHYLENE GLYCOL (HEALTHYLAX) 3350 17 GM PACKET PO SCH ×3 (06:35→21:24)
[2021-12-23] MEDS: GABAPENTIN 100 MG CAPSULE PO SCH ×3 (06:35→21:23)
[2021-12-23] MEDS: metFORMIN HCL 500 MG TABLET (FP) PO SCH ×2 (06:35→18:03)
[2021-12-23] MEDS: INSULIN SLIDING SCALE (NOVOLOG) 1 VIAL SQ SCH ×4 (06:36→21:24)
[2021-12-23] MEDS: LOSARTAN POTASSIUM 50 MG TABLET PO SCH (09:54)
[2021-12-23] MEDS: ASPIRIN 81 MG CHEWABLE TABLETS PO SCH (09:54)
[2021-12-23] MEDS: HYDROCHLOROTHIAZIDE 12.5 MG CAPSULE (FP) PO SCH (09:54)
[2021-12-23] MEDS: MONTELUKAST NA 10 MG TABLET PO SCH (09:54)
[2021-12-23] MEDS: NEBIVOLOL 10 MG TABLET (FP) PO SCH (09:54)
[2021-12-23] MEDS: amLODIPine BESYLATE 5 MG TABLET (FP) PO SCH (09:54)
[2021-12-23] MEDS: PANTOPRAZOLE 40 MG TABLET PO SCH (09:54)
[2021-12-23] MEDS: MAGNESIUM OXIDE 400 MG TABLET (FP) PO SCH ×2 (09:54→21:23)
[2021-12-23] MEDS: BUDESONIDE/FORMETEROL FUMARATE 160/4.5 mcg INHALER IH SCH ×2 (09:54→21:43)
[2021-12-23] MEDS: EZETIMIBE 10 MG TABLET (FP) PO SCH (21:23)
[2021-12-23] MEDS: ACETAMINOPHEN 325 MG TABLET (FP) PO PRN (21:23)
[2021-12-23] MEDS: guaiFENesin 200 MG/10 ML 10 ML UNIT-DOSE CUPS PO PRN (21:25)
[2021-12-23] MEDS: NORTRIPTYLINE HCL 10 MG CAPSULE PO SCH (21:27)
[2021-12-24] MEDS: POLYETHYLENE GLYCOL (HEALTHYLAX) 3350 17 GM PACKET PO SCH ×2 (06:08→13:51)
[2021-12-24] MEDS: GABAPENTIN 100 MG CAPSULE PO SCH ×2 (06:08→13:52)
[2021-12-24] MEDS: metFORMIN HCL 500 MG TABLET (FP) PO SCH ×2 (06:23→17:12)
[2021-12-24] MEDS: INSULIN SLIDING SCALE (NOVOLOG) 1 VIAL SQ SCH ×3 (06:23→17:12)
[2021-12-24] MEDS: LOSARTAN POTASSIUM 50 MG TABLET PO SCH (09:46)
[2021-12-24] MEDS: HYDROCHLOROTHIAZIDE 12.5 MG CAPSULE (FP) PO SCH (09:46)
[2021-12-24] MEDS: NEBIVOLOL 10 MG TABLET (FP) PO SCH (09:46)
[2021-12-24] MEDS: MAGNESIUM OXIDE 400 MG TABLET (FP) PO SCH (09:46)
[2021-12-24] MEDS: PANTOPRAZOLE 40 MG TABLET PO SCH (09:46)
[2021-12-24] MEDS: MONTELUKAST NA 10 MG TABLET PO SCH (09:47)
[2021-12-24] MEDS: amLODIPine BESYLATE 5 MG TABLET (FP) PO SCH (09:47)
[2021-12-24] MEDS: ASPIRIN 81 MG CHEWABLE TABLETS PO SCH (09:47)
[2021-12-24] MEDS: BUDESONIDE/FORMETEROL FUMARATE 160/4.5 mcg INHALER IH SCH (09:48)
[2021-12-24 14:23] VITALS: BP 93/53; PULSE 65; RESP 20; TEMP 98.2
== END 2021-12-24 19:16 | disposition home or self-care (01) | DRG 191 ==
LOC: JER 02:22 → OBSVTOIN 03:03 → JERBED 03:03 → J4W 20:53
PROVIDERS: ADMIT Internal Medicine; ATTEND Family Medicine
DX: J44.1 Chronic obstructive pulmonary disease with (acute) exacerbation (principal); I50.32 Chronic diastolic (congestive) heart failure; I11.0 Hypertensive heart disease with heart failure; J45.909 Unspecified asthma, uncomplicated; R05.9 Cough, unspecified; J44.9 Chronic obstructive pulmonary disease, unspecified; M48.061 Spinal stenosis, lumbar region without neurogenic claudication; M54.16 Radiculopathy, lumbar region; E11.40 Type 2 diabetes mellitus with diabetic neuropathy, unspecified; K59.00 Constipation, unspecified; I25.119 Atherosclerotic heart disease of native coronary artery with unspecified angina pectoris; Z95.1 Presence of aortocoronary bypass graft; K21.9 Gastro-esophageal reflux disease without esophagitis
CPT/HCPCS: 36415; 71045-TC-FY; 72148-TC; 80048; 80053; 80061; 82607; 82728; 82962; 83036; 83540; 83550; 83735; 83880; 84443; 84484; 85025; 85027; 93005; 93010; 95860-TC; 97116-GP; 97162-GP; 99285-25; C9803-CS; U0003; U0005

== ENCOUNTER 2023-12-30 04:18 | Day surgery (SDC) | payer OTHER ==
[2023-12-29 15:29] VITALS: BMI 27.8
[2023-12-30] MEDS ORDERED: BUPIVACAINE HCL/PF 0.5% (5MG/ML) 10 ML VIAL ONE (07:24)
[2023-12-30] MEDS ORDERED: methylPREDNISolone NA SUCC 125 MG/2 ML VIAL ONE (08:25)
[2023-12-30] MEDS ORDERED: ROCURONIUM BROMIDE 50 MG/5 ML SYRINGE ONE ×2 (08:32→09:16)
[2023-12-30] MEDS ORDERED: ALBUTEROL SO4 HFA INHALER IH ONE (08:37)
[2023-12-30] MEDS: ceFAZolin SODIUM 1 GM VIAL IVPB ONE (08:52)
[2023-12-30] MEDS: BUPIVACAINE HCL/PF 0.5% (5MG/ML) 10 ML VIAL IJ ONE (09:00)
[2023-12-30] MEDS ORDERED: ceFAZolin SODIUM 1 GM VIAL ONE ×2 (09:16)
[2023-12-30] MEDS ORDERED: ONDANSETRON 4 MG/2 ML VIAL ONE (09:45)
[2023-12-30] MEDS ORDERED: NEOSTIGMINE METHYLSULFATE 0.5 MG/1 ML - 10 ML MDV ONE (09:47)
[2023-12-30] MEDS ORDERED: IPRATROPIUM BR 0.02% 0.5 MG/2.5 ML VIAL.NEB. NEB ONE (10:02)
[2023-12-30] MEDS ORDERED: ONDANSETRON 4 MG/2 ML VIAL IVPUSH PRN (10:08)
[2023-12-30] MEDS ORDERED: ALBUTEROL SO4 0.5 % INH SOLN 2.5 MG/0.5 ML VIAL.NEB. NEB ONE (10:09)
[2023-12-30] MEDS: IPRATROPIUM BR 0.02% 0.5 MG/2.5 ML VIAL.NEB. NEB PRN (10:13)
[2023-12-30] MEDS ORDERED: LACTATED RINGERS SOLUTION 1,000 ML IV SCH (10:15)
[2023-12-30] MEDS: ACETAMINOPHEN 1000 MG/100 ML BAG IVPB ONE (10:25)
[2023-12-30 12:45] VITALS: RESP 18
[2023-12-30 12:51] VITALS: BP 117/58; PULSE 73; TEMP 97
== END 2023-12-30 14:00 | disposition home or self-care (01) ==
LOC: JASU-SURG 04:18
PROVIDERS: ATTEND Surgery
PROC: 0FT44ZZ Resection of Gallbladder, Percutaneous Endoscopic Approach (ICD-10-PCS; principal; 2023-12-30 08:00)
DX: K81.1 Chronic cholecystitis (principal); K66.0 Peritoneal adhesions (postprocedural) (postinfection)
CPT/HCPCS: 36415; 82010; 82962; 86850; 86900; 86901; 88304-TC; 94640; 94760; J0131